=== PATIENT | female | born 2005 | race Caucasian/White ===

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

== ENCOUNTER 2024-02-17 22:05 | Emergency (ER) | payer MEDICAID, SELFPAY ==
[2024-02-17 22:05] VITALS: BP 129/74; PULSE 91; RESP 16; TEMP 36.6; O2SAT 99; BMI 39.0
--- NOTE | 2024-02-17 22:45 | EDS_ITS ---
HPI History of Present Illness Chief Complaint: Lower Extremity Injury Informant: patient and spouse/S.O. Narrative Narrative: Patient is a 18-year-old female with past medical history of right meniscus injury requiring surgery as well as previous kidney stones. 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 She denies any direct trauma or sudden onset of pain but states that today after being on her feet at work she noticed some increased pain to the medial aspect of her right knee especially any type of turning or twisting motion. Because of her previous knee history she was concern for repeat trauma and therefore comes in for evaluation [facility] Medical History Kidney stones Smoker Knee pain Home Medications ?Medication ?Instructions ?Recorded ?Last Taken ?Type naproxen 250 mg tablet 250 mg PO BID PRN pain 04/05/20 Unknown History Allergy/AdvReac Type Severity Reaction Status Date / Time Egg Derived (eggs - derived) Allergy RASH Verified 02/17/24 22:08 shellfish derived Allergy HIVES Verified 02/17/24 22:08 Family History (System 06/12/20 @ 15:06 by Monty Myers) Mother Diabetes Vertigo Surgical History (Updated 02/17/24 @ 22:24 by Vivienne Calles) S/P right knee arthroscopy History of removal of cyst History of tonsillectomy Social History (System 06/12/20 @ 15:06 by Monty Myers) Smoking Status: Current every day smoker tobacco type: e-cigarettes alcohol intake: never ROS ROS ED Constitutional Constitutional ED: Denies chills or fever(s) ENT ENT ED: Denies sore throat Cardiovascular Cardiovascular: Denies chest pain Respiratory/Chest Respiratory/Chest: Denies cough or dyspnea Gastrointestinal Gastrointestinal: Denies abdominal pain, diarrhea, nausea or vomiting Genitourinary Genitourinary ED: Denies dysuria Musculoskeletal Musculoskeletal: Reports other Details: Positive right knee pain Integumentary Denies rash Neurologic Neurologic: Denies headache(s), paresthesias or weakness Hematologic/Lymphatic Hematologic/Lymphatic: Denies easy bleeding or easy bruising EXAM Physical Exam Const Vital Signs: 02/17/24 22:05 Temperature 98 F Temperature Source Temporal Pulse Rate 91 Respiratory Rate 16 Blood Pressure 129/74 H Blood Pressure Mean 92 Pulse Ox 99 Oxygen Delivery Method Room Air Positive well nourished and well developed General Appearance ED: well developed; Negative for pallor HEENT HEENT Narrative: Normocephalic atraumatic Eyes PERRL and EOMs intact bilaterally General Eye ED: Negative for scleral icterus Neck supple Resp normal respiratory effort and clear to auscultation bilaterally Cardio regular rate and regular rhythm Extremity Extremity Narrative: Right lower extremity is neurovascularly intact. No obvious bony deformity or joint effusion noted. Patellar tendon is intact and knee ligaments are stable. There is mild grinding noted with Villalobos's test on the right. No overlying erythema or warmth to suggest bursitis or septic joint. Negative Homans' sign bilaterally. Compartments are soft and compressible going against compartment syndrome. Patient does not have increased pain with deep squat. Neuro oriented x3, CN's II-XII intact bilaterally and no sensory deficits noted Sensorium / Orientation: alert Psych mental status grossly normal Skin no rashes or lesions noted and no wounds General Skin Exam: Negative for jaundice or pallor MDM MDM MDM Narrative Medical decision making narrative: Patient arrived to ER with stable vitals and denies any direct trauma to her right knee. Differential diagnosis is for knee contusion versus patellar fracture versus ligamentous tear versus sprain. The patient had no history or signs of direct trauma and therefore I felt no need for an x-ray. There is no overlying soft tissue changes to suggest infection and she has good active range of motion going against septic joint. Compartments are soft and compressible and therefore there is low concern for compartment syndrome. There is no asymmetric edema going against DVT. The patient having pain along the medial meniscus and grinding/inflammation noted on Jeronimo's test I do feel this is most likely a knee sprain leading to inflammation of the MCL. Patient will prescribe steroid to help reduce the symptoms and can follow-up with orthopedics to discuss need for MRI if symptoms persist. History & Record Review Discussion w/independent historian: Patient and Significant other Discharge Plan Triage Chief Complaint: Lower Extremity Injury ED Provider: Casey Salgado Dx/Rx/DC Orders Clinical Impression: MCL sprain of right knee, History of bucket handle tear of medial meniscus Instructions: Medial Collateral Ligament Sprain, ED Knee Sprain Prescriptions: No Action naproxen 250 mg tablet 250 mg PO BID PRN (Reason: pain) Stand Alone Forms: ED Work / School Excuse Primary Care Provider: Care Physician,No Primary Referrals: Diaz Perry MD [Med Staff - Active Staff] - Care Physician,No Primary [Primary Care Provider] - Activity Restrictions/Additional Instructions: If symptoms persist over 1 to 2 weeks please follow-up with orthopedics to discuss need for repeat evaluation and/or MRI for further diagnosis of your knee pain. Use the steroid as directed to reduce inflammation and rest the area to speed healing. Return to the ER should you have any further concerns Print Language: Swedish Disposition Disposition: Home, Self Care
[2024-02-17] MEDS: predniSONE 20 MG Tablet 40 MG PO (22:52)
[2024-02-17] MEDS: oxyCODONE 5 MG Tablet PO (22:52)
[2024-02-17 22:56] VITALS: BP 128/74; PULSE 73; RESP 16; TEMP 36.6; O2SAT 99
== END 2024-02-17 22:57 | disposition home or self-care (01) ==
PROVIDERS: Emergency Provider Emergency Medicine; Visit Provider Emergency Medicine
DX: S83.411A Sprain of medial collateral ligament of right knee, initial encounter (principal); X58.XXXA Exposure to other specified factors, initial encounter; F17.200 Nicotine dependence, unspecified, uncomplicated
CPT/HCPCS: 99283

== ENCOUNTER 2024-06-09 17:37 | Emergency (ER) | payer MEDICAID, SELFPAY ==
[2024-06-09 17:38] VITALS: BP 116/75; PULSE 94; RESP 16; TEMP 35.8; O2SAT 100; BMI 40.2
--- NOTE | 2024-06-09 18:25 | EDS_ITS ---
HPI History of Present Illness Chief Complaint: Rash Detail of Chief Complaint: Rash Informant: patient Narrative Narrative: Patient presents to the emergency department complaint of a rash on her upper extremities that started 6 days ago. Patient states that she was doing gardening work and was wearing long pants and boots but had a short-sleeved shirt on because it was warm out. She thinks it is poison cara. She went to urgent care where she was prescribed triamcinolone but did not have any improvement with that. She denies recent illness. [facility] Medical History Kidney stones Smoker Knee pain Home Medications ?Medication ?Instructions ?Recorded ?Last Taken ?Type naproxen 250 mg tablet 250 mg PO BID PRN pain 04/05/20 Unknown History prednisone 20 mg tablet 20 mg PO BID #10 tabs 06/09/24 Unknown Rx Allergy/AdvReac Type Severity Reaction Status Date / Time Egg Derived (eggs - derived) Allergy RASH Verified 06/09/24 17:38 shellfish derived Allergy HIVES Verified 06/09/24 17:38 Family History (System 06/12/20 @ 15:06 by Monty Myers) Mother Diabetes Vertigo Surgical History (Updated 02/17/24 @ 22:24 by Vivienne Calles) S/P right knee arthroscopy History of removal of cyst History of tonsillectomy Social History (System 06/12/20 @ 15:06 by Monty Myers) Smoking Status: Current every day smoker tobacco type: e-cigarettes alcohol intake: never ROS ROS ED Review of Systems ROS Unobtainable: other Constitutional Constitutional ED: Reports lethargy; Denies chills, fever(s), sweats or weight loss Eyes Eyes: Denies blurry vision, change in vision or diplopia ENT ENT ED: Denies rhinorrhea or sore throat Cardiovascular Cardiovascular: Denies chest pain, orthopnea or racing heartbeat Respiratory/Chest Respiratory/Chest: Denies cough, dyspnea, dyspnea on exertion, orthopnea or sputum Gastrointestinal Gastrointestinal: Denies abdominal pain, diarrhea, nausea or vomiting Genitourinary Genitourinary ED: Denies dysuria, hematuria or urinary frequency Musculoskeletal Musculoskeletal: Denies arthralgias, back pain, myalgias or neck pain Integumentary Reports rash; Denies abscess or Abrasions Neurologic Neurologic: Denies headache(s) or weakness Psychiatric Psychiatric: Denies anxiety, depression or suicidal thoughts Endocrine Endocrinology: Denies polydipsia, polyphagia or polyuria Hematologic/Lymphatic Hematologic/Lymphatic: Denies easy bleeding, easy bruising or lymphadenopathy Allergic/Immunologic Allergic/Immunologic ED: Denies mouth swelling, tongue swelling or urticaria EXAM Physical Exam Const Vital Signs: 06/09/24 17:38 Temperature 96.4 F L Temperature Source Temporal Pulse Rate 94 Respiratory Rate 16 Blood Pressure 116/75 Blood Pressure Mean 88 Pulse Ox 100 Oxygen Delivery Method Room Air Positive well nourished and well developed General Appearance ED: well developed and NAD HEENT Reports TM's clear and moist mucous membranes normocephalic and atraumatic; Negative for trauma or tenderness Tympanic Membrane ED: Yes TM's clear Eyes PERRL and EOMs intact bilaterally General Eye ED: Negative for pale conjunctiva or scleral icterus Neck no lymphadenopathy, supple and no JVD General: Negative for tenderness Chest Wall inspection of chest normal and palpation of chest normal Chest: Negative for tenderness Resp normal respiratory effort and clear to auscultation bilaterally Effort and Inspection: Negative for respiratory distress or pain with movement Auscultation: Negative for rhonchi, wheezes or diminished lung sounds Cardio regular rate, regular rhythm, S1 normal heart sound, S2 normal heart sound and no murmurs Peripheral Pulses: pulses 2+ throughout GI normal to inspection, nondistended, normoactive bowel sounds, soft to palpation, non-tender, non-distended and no masses Back/Spine no CVA tenderness and no thoracic nor lumbar tenderness Extremity Extremity Narrative: Rash on both upper extremities General Extremety ED: Negative for edema General Extremity: Negative for edema Neuro oriented x3, CN's II-XII intact bilaterally, no sensory deficits noted and gait normal Sensorium / Orientation: awake, alert, oriented to person, oriented to place and oriented to time Motor Exam: strength 5/5 throughout and strength abnormal Psych mental status grossly normal Skin no wounds Skin Narrative: Patient with a slightly clustered vesicular rash involving the upper extremities there are some linear lesions also noted. Mild surrounding erythema. Rash consistent with a Josy dermatitis. She also has some lesions on her face noted. MDM MDM MDM Narrative Medical decision making narrative: Patient presents with a rash after gardening consistent clinically with a poison cara or poison oak. Patient will be started on prednisone. Advised to follow-up with primary care physician 5 to 7 days. Discharge Plan Triage Chief Complaint: Rash ED Provider: Luis Grace Dx/Rx/DC Orders Clinical Impression: Poison cara dermatitis Instructions: ED Poison Cara Rash Prescriptions: New prednisone 20 mg tablet 20 mg PO BID Qty: 10 0RF No Action naproxen 250 mg tablet 250 mg PO BID PRN (Reason: pain) Primary Care Provider: Care Physician,No Primary Referrals: Care Physician,No Primary [Primary Care Provider] - Activity Restrictions/Additional Instructions: See your primary care physician in 5 to 7 days Print Language: Serbian Disposition Disposition: Home, Self Care
== END 2024-06-09 19:16 | disposition home or self-care (01) ==
LOC: ED 18:33
PROVIDERS: Emergency Provider Emergency Medicine; PCP Nurse Practitioner Adult Health; Visit Provider Emergency Medicine
DX: L23.7 Allergic contact dermatitis due to plants, except food (principal); F17.290 Nicotine dependence, other tobacco product, uncomplicated
CPT/HCPCS: 99282